=== PATIENT | female | born 1965 | race Caucasian/White ===

== ENCOUNTER 2018-11-16 12:29 | Outpatient (CLI) ==
--- NOTE | 2018-11-16 13:41 | DI ---
EXAM: CHEST FRONTAL AND LATERAL VIEWS HISTORY: Chest pain. COMPARISON: None FINDINGS: Heart size and mediastinal contour within normal limits. No acute infiltrates. [place] l vascularity with no pleural fluid or pneumothorax. The bony thorax has no acute finding. IMPRESSION: No acute process.
== END 2018-11-16 12:30 | disposition home or self-care (01) ==
LOC: RAD 12:29
PROVIDERS: ATTEND Internal Medicine
DX: R07.9 Chest pain, unspecified (principal)

== ENCOUNTER 2018-11-24 06:52 | Outpatient (CLI) ==
--- NOTE | 2018-11-24 12:37 | STRESSECHO ---
Date of Test: 11/24/18 Ordering Physician: DR. RENATO BELL Occupation: [employer] Reason for Exam: CHEST PAIN, SOB Smoking History: QUIT 20 YRS AGO Height: 63" Weight: 148 LBS Current Medications: NO MEDICATIONS Resting EKG: SINUS RHYTHM/ NO ACUTE CHANGES Target Heart Rate: 142/168 S-T SEGMENT STAGE MPH/GRADE HEART RATE BPM BLOOD PRESSURE MMHG RHYTHM +/- ELEVATION DEPRESSION SYMPTOMS AT REST 46 BPM 118/72 MMHG SR X NONE 1 1.7/10% 116 BPM 132/62 MMHG SR X NONE 2 2.5/12% 140 BPM SR X NONE 3 3.4/14% 4 4.2/16% 5 5.0/18% Immediately After 154 BPM SR X FATIGUE Minutes Post Exercise 6:00 82 BPM 120/68 MMHG SR X NONE Minutes Post Exercise DURATION OF EXERCISE: 6:31 MAXIMUM HEART RATE REACHED: 154 BPM REASON FOR TERMINATION: FATIGUE 98% OXYGEN SATURATION WITH EXERCISE ON ROOM AIR METS 8.6 INTERPRETATION: 1. NO EVIDENCE OF ISCHEMIA BY ST-T WAVE 2. NO CHEST PAIN OR DISCOMFORT 3. NO ARRHYTHMIAS 4. BLOOD PRESSURE RESPONSE NORMAL NORMAL LEFT VENTRICULAR CONTRACTILITY--RESTING AND POST EXERCISE MTDD
--- NOTE | 2018-11-24 12:40 | ECHOSTRESS ---
Date of Exam: 11/24/18 Ordering Physician: DR. RENATO BELL Reason for Echo: CHEST PAIN, SOB M-Mode Normal Adult Results LV Dimensions Normal Adult Results AoV Opening excursions >1.6 LVEDD-base- 3.5-5.8 Ao root dimensions 2.0-3.7 LVESD-base- 3.1-4.6 L. Atrium dimensions 1.9-3.8 Post. Wall thickness 0.8-1.1 IV septum (thickness) 0.7-1.2 Post. Wall excursion 0.72-1.3 Septal motion Systolic motion R. Ventricular cavity 1.5-2.0 LVEF 60% Paradoxical septal wall motion 2-D: NORMAL LEFT VENTRICULAR CONTRACTILITY--RESTING AND POST EXERCISE M-MODE: MV: AV: TV: PV: CHAMBER SIZE: WALL MOTION: NORMAL LEFT VENTRICULAR CONTRACTILITY--RESTING AND POST EXERCISE PERICARDIUM: INTERPRETATION: 1. NORMAL LEFT VENTRICULAR CONTRACTILITY--RESTING AND POST EXERCISE MTDD
--- NOTE | 2018-11-26 08:55 | HOLTER ---
PATIENT INFORMATION AND COMMENTS Attending Physician: DR. RENATO BELL Indications: CHEST PAIN, SHORT OF AIR __ Patient Medications: NO PRESCRIPTION MEDICATIONS __ Pre-procedure Summary: Protocol: Standard Heart Rate Started: 11/24/18820 Minimum: 44 BPM Weight: 148 LBS Ended: 11/25/18820 Maximum: 133 BPM Height: 63" Duration: 24 HOURS Average: 61 BPM _ INTERPRETATIONS/OBSERVATIONS: 1. BASIC RHYTHM: SINUS, RATE 44 BPM TO 120 BPM, AVERAGE 60 BPM 2. RARE PAC'S AND PVC'S 3. NO ST-T WAVE CHANGES FROM BASELINE 4. ACTIVITY LOG NOT MAINTAINED MTDD
== END 2018-11-24 06:53 | disposition home or self-care (01) ==
LOC: CAR 06:52
PROVIDERS: ATTEND Internal Medicine
DX: R07.9 Chest pain, unspecified (principal); R06.02 Shortness of breath
CPT/HCPCS: 93227

== ENCOUNTER 2019-01-25 13:39 | Outpatient (CLI) ==
--- NOTE | 2019-01-26 10:24 | MAMMO ---
EXAM: Digital screening mammogram with tomosynthesis HISTORY: Screening COMPARISON: None FINDINGS: Digital MLO and CC views of the right and left breast were performed. Tomosynthesis was performed. Computer aided detection utilized. There are scattered fibroglandular densities. There is no evidence for mass, asymmetry, distortion, or suspicious calcifications in either breast. IMPRESSION: 1. No evidence of malignancy in the right or left breast. 2. Annual screening mammogram is recommended in one year. BIRADS category 1, negative examination
== END 2019-01-25 13:40 | disposition home or self-care (01) ==
LOC: RAD 13:39
PROVIDERS: ATTEND Internal Medicine
DX: Z12.31 Encounter for screening mammogram for malignant neoplasm of breast (principal)